=== PATIENT | male | born 1945 | race Caucasian/White ===

== ENCOUNTER 2020-10-26 15:20 | Emergency (ER) | payer MEDICARE, SELFPAY ==
[2020-10-26] VITALS (25 sets, daily range): BP systolic 122–169; BP diastolic 56–114; PULSE 76–87; RESP 14–30; TEMP 35.8; O2SAT 95–100; BMI 36.5
--- NOTE | 2020-10-26 15:27 | DI.US.S_ITS ---
PROCEDURE: US RENAL COMPLETE INDICATIONS: acute renal failure TECHNIQUE: Real-time scanning was performed of the kidneys and bladder, with image documentation. COMPARISON: None. FINDINGS: Kidneys: Kidneys are normal in size. Right kidney measures 11.5 cm long; left kidney measures 12.1 cm long. Right renal cortical thickness is 1.9 cm; left renal cortical thickness is 1.9 cm. Renal cortical echotexture is normal. No hydronephrosis or nephrolithiasis. No suspicious solid mass lesions. The right kidney has a 1.7 centimeter cyst. Bladder: Pre-void bladder volume is 142 mL. Post-void residual was not performed. The patient stated he was not able to void. Pre-void images demonstrate no intraluminal masses or stones. On pre-void images, neither right nor left ureteral jets are noted with color Doppler interrogation. (Of note, ureteral jets may not be detectable in up to 25% of cases due to insufficient differences in specific gravity between ureteral and bladder urine). Miscellaneous: No free pelvic fluid. IMPRESSION: 1. No acute abnormality of the kidneys. No hydronephrosis. 2. Simple cysts of the right kidney. 3. Prevoid volume was 142 mL and the patient unable to void. Dictated by: Ramon Bailey M.D. on 10/26/2020 at 16:28 Approved by: Ramon Bailey M.D. on 10/26/2020 at 16:31
--- NOTE | 2020-10-26 15:29 | DI.RAD.S_ITS ---
PROCEDURE: XR ACUTE ABDOMEN SERIES INDICATIONS: renal failure TECHNIQUE: One view chest and two views of the abdomen were acquired. COMPARISON: None. FINDINGS: Surgical changes and devices: None. Chest: Lungs are clear. Heart size is normal. No pleural effusions. No pneumoperitoneum. Abdomen: Bowel gas pattern is normal. No suspicious calcifications. Visualized solid organ contours appear normal. There are pelvic phleboliths. Bones: The lumbar spine has multilevel degenerative changes. IMPRESSION: No acute plain film abnormality of the abdomen or pelvis. Dictated by: Ramon Bailey M.D. on 10/26/2020 at 16:35 Approved by: Ramon Bailey M.D. on 10/26/2020 at 16:37
--- NOTE | 2020-10-26 16:13 | ED_ITS ---
HPI - Nausea/Vomiting/Diarrhea <Brandyn Cabrera DO - Last Filed: 10/28/20 17:28> General Chief complaint: Nausea/Vomiting/Diarrhea Stated complaint: sent by MD for fluids Time Seen by Provider: 10/26/20 15:27 Source: patient Mode of arrival: Ambulatory Limitations: no limitations History of Present Illness HPI Narrative: 75M nonsmoker with history of diverting ostomy for colitis, NIDDM, and HTN presents to the emergency department at the request of his primary care provider for ongoing evaluation and treatment of significantly abnormal labs. The patient and his ate at a restaurant out of town last Friday and sure double of nakia valdez both developed significant nausea abdominal cramping and diarrhea in the aftermath. Patient has become dizzy, weak and lightheaded. He has subjective fever but no chills. He denies significant pain just cramping. He admits to decreased urine output and states that that which he produces has become dark. He has become weak and fatigued a nd arrange for an appointment with his primary care provider for evaluation. She ran labs yesterday and called him stating he had critical abnormalities and needed to present to us. His creatinine had bumped to up over 3 and GFR was down around 10 or 11. MD complaint: nausea, diarrhea and abdominal pain Onset (ago): day(s) Description of Diarrhea: watery Associated Abdominal Pain: Yes Location of pain: diffuse Severity: mild Quality: cramping Pain Consistency: intermittent Relieving factors: none Exacerbating factors: none Context: possible food poisoning Associated symptoms: loss of appetite, nausea/vomiting and fatigue Related Data Allergies Allergy/AdvReac Type Severity Reaction Status Date / Time No Known Drug Allergies Allergy Verified 10/26/20 15:30 Review of Systems <Brandyn Cabrera DO - Last Filed: 10/28/20 17:28> Constitutional Constitutional: Reports chills, Reports fatigue, Reports fever(s), Denies frequent falls, Reports lethargy and Reports weakness Eyes Eyes: Denies change in vision, Denies eye discharge, Denies irritation and Arik es loss of vision ENT Ears, Nose, Mouth, and Throat: Denies change in voice, Denies dizziness, Denies neck pain, Denies sore throat and Denies throat swelling Cardiovascular Cardiovascular: Denies chest pain, Denies irregular heart rhythm, Denies lightheadedness, Denies palpitations, Denies dyspnea, Denies dyspnea on exertion and Denies orthopnea Respiratory Respiratory: Denies cough, Denies dyspnea, Denies dyspnea on exertion and Denies wheezing Gastrointestinal Gastrointestinal: Reports abdominal pain, Reports change in bowel habits, Report s diarrhea, Reports nausea and Denies vomiting Musculoskeletal Musculoskeletal: Denies neck pain and Denies numbness Integumentary/Breasts Skin/Breast: Denies pruritus, Denies erythema, Denies rash and Denies wounds Neurologic Neurologic: Denies behavioral changes, Denies confusion, Denies dizziness, Denies frequent falls, Denies loss of vision, Denies numbness and Reports weakn ess Psychiatric Psychiatric: Denies anxiety, Denies behavioral changes, Denies confusion, Denies depression, Denies homicidal ideation and Denies suicidal ideation Endocrine Endocrine: Reports fatigue, Denies flushing and Denies palpitations Hematologic/Lymphatic Hematologic/Lymphatic: Denies easy bruising Allergic/Immunologic Allergic/Immunologic: Denies urticaria, Denies throat swelling and Denies wheezing Patient History <Brandyn Cabrera DO - Last Filed: 10/28/20 17:28> Social History Smoking Status: Unknown if ever smoked Smoking Status: Unknown if ever smoked alcohol intake frequency: holidays/special occasions only Substance Use Type: does not use Exam <Brandyn Cabrera DO - Last Filed: 10/28/20 17:28> Narrative Exam Narrative: GENERAL: [75] year old patient appears stated age. Well- developed patient, in mild distress. HEAD: Atraumatic. Normocephalic. EYES: Pupils equal round and reactive. Extraocular motions intact. No scleral icterus. No injection or drainage. ENT: Dry mucous membranes Nose without bleeding, purulent drainage. Throat without erythema, tonsillar hypertrophy or exudate. Airway patent. NECK: Trachea midline. Non tender CARDIOVASCULAR: Regular rate and rhythm without murmurs, gallops, or rubs. RESPIRATORY: Clear to auscultation. Breath sounds equal bilaterally. No wheezes, rales, or rhonchi. GASTROINTESTINAL: Abdomen soft, non-tender, nondistended. Liquidy stool an ostomy bag, bowel sounds present in all 4 quadrants EXTREMITIES: No edema or joint tenderness. BACK: Nontender without deformity or crepitance. No flank tenderness. NEURO: AOx3. SKIN: Poor skin turgor No rash or erythema of visible areas Initial Vital Signs Initial Vital Signs: Vital Signs Temperature 96.4 F L 10/26/20 15:25 Pulse Rate 87 10/26/20 15:25 Respiratory Rate 16 10/26/20 15:25 Blood Pressure 130/60 10/26/20 15:25 Pulse Oximetry 97 10/26/20 15:25 <Kemar Canas, DO - Last Filed: 10/26/20 22:06> Initial Vital Signs Initial Vital Signs: Vital Signs Temperature 96.4 F L 10/26/20 15:25 Pulse Rate 87 10/26/20 15:25 Respiratory Rate 16 10/26/20 15:25 Blood Pressure 130/60 10/26/20 15:25 Pulse Oximetry 97 10/26/20 15:25 Course <Brandyn Cabrera DO - Last Filed: 10/28/20 17:28> Orders Ordered: Discontinued Medications Al Hydrox/Mg Hydrox/Simethicone (Mag Hydrox/Alum/Simeth 30 Ml Udc) 30 ml PO NOW ONE Stop: 10/26/20 16:48 Last Admin: 10/26/20 16:57 Dose: 30 ml Documented by: BTONER Sodium Chloride (Normal Saline 0.9%) 1,000 mls @ 1,000 mls/hr IV BOLUS ONE Stop: 10/26/20 16:26 Last Infusion: 10/26/20 17:59 Dose: 0 mls/hr Documented by: Admin: 10/26/20 16:46 Dose: 1,000 mls/hr Documented by: BTONER Sodium Chloride (Normal Saline 0.9%) 1,000 mls @ 1,000 mls/hr IV BOLUS ONE Stop: 10/26/20 19:05 Last Infusion: 10/26/20 20:21 Dose: 0 mls/hr Documented by: Admin: 10/26/20 18:07 Dose: 1,000 mls/hr Documented by: BTONER Sodium Chloride (Normal Saline 0.9%) 1,000 mls @ 125 mls/hr IV CONT RUDY Last Infusion: 10/26/20 23:18 Dose: 125 mls/hr Documented by: Admin: 10/26/20 22:39 Dose: 125 mls/hr Documented by: BERTIN Vital Signs Vital signs: Vital Signs - 8 hr 10/26/20 15:25 10/26/20 15:44 10/26/20 16:00 Temperature 96.4 F L Pulse Rate 87 84 82 Respiratory Rate 16 19 18 Blood Pressure 130/60 Pulse Oximetry 97 96 97 10/26/20 16:30 10/26/20 16:31 10/26/20 17:00 Temperature Pulse Rate 82 81 78 Respiratory Rate 17 19 15 Blood Pressure 122/59 L 130/56 L Pulse Oximetry 95 97 98 10/26/20 17:30 10/26/20 17:31 10/26/20 18:00 Temperature Pulse Rate 80 79 76 Respiratory Rate 15 15 16 Blood Pressure 160/70 H Pulse Oximetry 98 99 100 10/26/20 18:01 10/26/20 18:30 10/26/20 18:31 Temperature Pulse Rate 79 86 87 Respiratory Rate 20 23 30 H Blood Pressure 148/64 H 150/114 H Pulse Oximetry 98 10/26/20 19:00 10/26/20 19:30 10/26/20 19:38 Temperature Pulse Rate 76 80 79 Respiratory Rate 15 18 21 Blood Pressure 145/60 H 169/72 H Pulse Oximetry 98 97 99 10/26/20 20:00 10/26/20 20:01 10/26/20 20:30 Temperature Pulse Rate 77 78 78 Respiratory Rate 14 17 15 Blood Pressure 165/69 H Pulse Oximetry 98 98 100 10/26/20 20:31 10/26/20 21:00 10/26/20 21:26 Temperature Pulse Rate 79 86 81 Respiratory Rate 14 18 17 Blood Pressure 151/66 H 158/100 H Pulse Oximetry 99 99 98 10/26/20 21:30 10/26/20 21:31 Temperature Pulse Rate 83 80 Respiratory Rate 19 17 Blood Pressure 152/67 H Pulse Oximetry 98 98 <Kemar Canas DO - Last Filed: 10/26/20 22:06> Orders Ordered: Discontinued Medications Al Hydrox/Mg Hydrox/Simethicone (Mag Hydrox/Alum/Simeth 30 Ml Udc) 30 ml PO NOW ONE Stop: 10/26/20 16:48 Last Admin: 10/26/20 16:57 Dose: 30 ml Documented by: BTONETayler Sodium Chloride (Normal Saline 0.9%) 1,000 mls @ 1,000 mls/hr IV BOLUS ONE Stop: 10/26/20 16:26 Last Infusion: 10/26/20 17:59 Dose: 0 mls/hr Documented by: Admin: 10/26/20 16:46 Dose: 1,000 mls/hr Documented by: ZULMAONER Sodium Chloride (Normal Saline 0.9%) 1,000 mls @ 1,000 mls/hr IV BOLUS ONE Stop: 10/26/20 19:05 Last Infusion: 10/26/20 20:21 Dose: 0 mls/hr Documented by: Admin: 10/26/20 18:07 Dose: 1,000 mls/hr Documented by: ZULMAONER Sodium Chloride (Normal Saline 0.9%) 1,000 mls @ 125 mls/hr IV CONT RUDY Last Infusion: 10/26/20 23:18 Dose: 125 mls/hr Documented by: Admin: 10/26/20 22:39 Dose: 125 mls/hr Documented by: BERTIN Vital Signs Vital signs: Vital Signs - 8 hr 10/26/20 15:25 10/26/20 15:44 10/26/20 16:00 Temperature 96.4 F L Pulse Rate 87 84 82 Respiratory Rate 16 19 18 Blood Pressure 130/60 Pulse Oximetry 97 96 97 10/26/20 16:30 10/26/20 16:31 10/26/20 17:00 Temperature Pulse Rate 82 81 78 Respiratory Rate 17 19 15 Blood Pressure 122/59 L 130/56 L Pulse Oximetry 95 97 98 10/26/20 17:30 10/26/20 17:31 10/26/20 18:00 Temperature Pulse Rate 80 79 76 Respiratory Rate 15 15 16 Blood Pressure 160/70 H Pulse Oximetry 98 99 100 10/26/20 18:01 10/26/20 18:30 10/26/20 18:31 Temperature Pulse Rate 79 86 87 Respiratory Rate 20 23 30 H Blood Pressure 148/64 H 150/114 H Pulse Oximetry 98 10/26/20 19:00 10/26/20 19:30 10/26/20 19:38 Temperature Pulse Rate 76 80 79 Respiratory Rate 15 18 21 Blood Pressure 145/60 H 169/72 H Pulse Oximetry 98 97 99 10/26/20 20:00 10/26/20 20:01 10/26/20 20:30 Temperature Pulse Rate 77 78 78 Respiratory Rate 14 17 15 Blood Pressure 165/69 H Pulse Oximetry 98 98 100 10/26/20 20:31 10/26/20 21:00 10/26/20 21:26 Temperature Pulse Rate 79 86 81 Respiratory Rate 14 18 17 Blood Pressure 151/66 H 158/100 H Pulse Oximetry 99 99 98 10/26/20 21:30 10/26/20 21:31 Temperature Pulse Rate 83 80 Respiratory Rate 19 17 Blood Pressure 152/67 H Pulse Oximetry 98 98 MDM - Nausea/Vomiting/Diarrhea <Brandyn Cabrera DO - Last Filed: 10/28/20 17:28> Lab Data Result diagrams: 10/26/20 16:30 10/26/20 19:36 Labs: Lab Results 10/26/20 10/26/20 10/26/20 Range/Units 16:30 16:30 16:30 WBC 12.1 H (4.5-11.0) X10^3/uL RBC 5.75 (4.5-5.9) X10^6/uL Hgb 18.8 H (13.5-17.5) g/dL Hct 55.8 H (41-53) % MCV 97.0 (80-100) fL MCH 32.7 (26-34) PG MCHC 33.7 (30-36) % RDW 13.4 (11.6-14.8) % Plt Count 264 (150-400) X10^3/uL Neut % (Auto) 73.7 (50-75) % Lymph % (Auto) 19.2 L (25-40) % [place] % (Auto) 6.1 (3-14) % Eos % (Auto) 0.4 L (2-4) % Baso % (Auto) 0.6 (0-2) % Neut # (Auto) 8900 H (0222-1595) /uL Lymph # (Auto) 2300 (9881-2527) /uL [place] # (Auto) 700 (0-900) /uL Eos # (Auto) 100 (0-450) /uL Baso # (Auto) 100 (0-100) /uL Sodium 128 L (137-145) mmol/L Potassium 5.3 H (3.4-5.1) mmol/L Chloride 92 L (98-107) mmol/L Carbon Dioxide 15 L (22-32) mmol/L BUN 116 H* (9-20) mg/dL Creatinine 5.86 H (0.66-1.25) mg/dL Estimated GFR 9.5 L (>60) mL/min BUN/Creatinine Ratio 19.8 (6-22) Glucose 205 H (80-110) mg/dL Lactate (0.7-2.1) mmol/L Calcium 10.9 H (8.4-10.2) mg/dL Magnesium 2.5 H (1.6-2.3) mg/dL Total Bilirubin 0.8 (0.2-1.3) mg/dL AST 27 (17-59) IU/L ALT 31 (<50) IU/L Alkaline Phosphatase 67 (38-126) U/L Total Creatine Kinase 152 (55-170) U/L CK-MB (CK-2) 4.92 H (<2.37) ng/mL CK-MB (CK-2) Rel Index 3.2 (1.5-5.0) % Troponin I < 0.012 (0.01-0.034) ng/mL NT-Pro-B Natriuret Pep 276 H (<125) pg/mL Total Protein 7.6 (6.3-8.2) g/dL Albumin 4.9 (3.5-5.0) g/dL Globulin 2.7 (1.7-4.1) g/dL Albumin/Globulin Ratio 1.8 (1.0-2.8) Ur Random Sodium Urine Creatinine Stl C. cayetanensis PCR (Not Detect) Stool Rotavirus (PCR) (Not Detect) Stool Adenovirus (PCR) (Not Detect) Stool Astrovirus (PCR) (Not Detect) Stool Cryptosporidium PCR (Not Detect) Stl E.coli Shiga Tox PCR (Not Detect) St Sh/Enteroin Ecoli PCR (Not Detect) Stool E coli O157 PCR Stl Enterotoxigenic E PCR (Not Detect) Stool EPEC (PCR) (Not Detect) Stl E. histolytica PCR (Not Detect) Stool Giardia Lamblia PCR (Not Detect) Stool Sapovirus (PCR) (Not Detect) Stl P. shigelloides PCR (Not Detect) St Y.enterocolitica PCR (Not Detect) Stool Vibrio (PCR) (Not Detect) Stl Vibrio cholerae PCR (Not Detect) Stl Enteroaggr Ecoli PCR (Not Detect) Stl Norovirus GI/GII PCR (Not Detect) Campylobacter (PCR) (Not Detect) C. difficile Tox (PCR) (Not Detect) SARS-CoV-2 (PCR) (Negative) Salmonella (PCR) (Not Detect) 10/26/20 10/26/20 10/26/20 Range/Units 16:30 16:30 16:30 WBC (4.5-11.0) X10^3/uL RBC (4.5-5.9) X10^6/uL Hgb (13.5-17.5) g/dL Hct (41-53) % MCV (80-100) fL MCH (26-34) PG MCHC (30-36) % RDW (11.6-14.8) % Plt Count (150-400) X10^3/uL Neut % (Auto) (50-75) % Lymph % (Auto) (25-40) % [place] % (Auto) (3-14) % Eos % (Auto) (2-4) % Baso % (Auto) (0-2) % Neut # (Auto) (0597-6490) /uL Lymph # (Auto) (0743-2091) /uL [place] # (Auto) (0-900) /uL Eos # (Auto) (0-450) /uL Baso # (Auto) (0-100) /uL Sodium (137-145) mmol/L Potassium (3.4-5.1) mmol/L Chloride (98-107) mmol/L Carbon Dioxide (22-32) mmol/L BUN (9-20) mg/dL Creatinine (0.66-1.25) mg/dL Estimated GFR (>60) mL/min BUN/Creatinine Ratio (6-22) Glucose (80-110) mg/dL Lactate 2.1 (0.7-2.1) mmol/L Calcium (8.4-10.2) mg/dL Magnesium (1.6-2.3) mg/dL Total Bilirubin (0.2-1.3) mg/dL AST (17-59) IU/L ALT (<50) IU/L Alkaline Phosphatase (38-126) U/L Total Creatine Kinase (55-170) U/L CK-MB (CK-2) (<2.37) ng/mL CK-MB (CK-2) Rel Index (1.5-5.0) % Troponin I (0.01-0.034) ng/mL NT-Pro-B Natriuret Pep (<125) pg/mL Total Protein (6.3-8.2) g/dL Albumin (3.5-5.0) g/dL Globulin (1.7-4.1) g/dL Albumin/Globulin Ratio (1.0-2.8) Ur Random Sodium Cancelled Urine Creatinine Cancelled Stl C. cayetanensis PCR (Not Detect) Stool Rotavirus (PCR) (Not Detect) Stool Adenovirus (PCR) (Not Detect) Stool Astrovirus (PCR) (Not Detect) Stool Cryptosporidium PCR (Not Detect) Stl E.coli Shiga Tox PCR (Not Detect) St Sh/Enteroin Ecoli PCR (Not Detect) Stool E coli O157 PCR Stl Enterotoxigenic E PCR (Not Detect) Stool EPEC (PCR) (Not Detect) Stl E. histolytica PCR (Not Detect) Stool Giardia Lamblia PCR (Not Detect) Stool Sapovirus (PCR) (Not Detect) Stl P. shigelloides PCR (Not Detect) St Y.enterocolitica PCR (Not Detect) Stool Vibrio (PCR) (Not Detect) Stl Vibrio cholerae PCR (Not Detect) Stl Enteroaggr Ecoli PCR (Not Detect) Stl Norovirus GI/GII PCR (Not Detect) Campylobacter (PCR) (Not Detect) C. difficile Tox (PCR) (Not Detect) SARS-CoV-2 (PCR) Negative (Negative) Salmonella (PCR) (Not Detect) 10/26/20 10/26/20 10/26/20 Range/Units 18:13 19:36 19:36 WBC (4.5-11.0) X10^3/uL RBC (4.5-5.9) X10^6/uL Hgb (13.5-17.5) g/dL Hct (41-53) % MCV (80-100) fL MCH (26-34) PG MCHC (30-36) % RDW (11.6-14.8) % Plt Count (150-400) X10^3/uL Neut % (Auto) (50-75) % Lymph % (Auto) (25-40) % [place] % (Auto) (3-14) % Eos % (Auto) (2-4) % Baso % (Auto) (0-2) % Neut # (Auto) (2986-7015) /uL Lymph # (Auto) (3697-9671) /uL [place] # (Auto) (0-900) /uL Eos # (Auto) (0-450) /uL Baso # (Auto) (0-100) /uL Sodium (137-145) mmol/L Potassium (3.4-5.1) mmol/L Chloride (98-107) mmol/L Carbon Dioxide (22-32) mmol/L BUN (9-20) mg/dL Creatinine 5.86 H (0.66-1.25) mg/dL Estimated GFR 9.5 L (>60) mL/min BUN/Creatinine Ratio (6-22) Glucose (80-110) mg/dL Lactate 1.2 (0.7-2.1) mmol/L Calcium (8.4-10.2) mg/dL Magnesium (1.6-2.3) mg/dL Total Bilirubin (0.2-1.3) mg/dL AST (17-59) IU/L ALT (<50) IU/L Alkaline Phosphatase (38-126) U/L Total Creatine Kinase (55-170) U/L CK-MB (CK-2) (<2.37) ng/mL CK-MB (CK-2) Rel Index (1.5-5.0) % Troponin I (0.01-0.034) ng/mL NT-Pro-B Natriuret Pep (<125) pg/mL Total Protein (6.3-8.2) g/dL Albumin (3.5-5.0) g/dL Globulin (1.7-4.1) g/dL Albumin/Globulin Ratio (1.0-2.8) Ur Random Sodium Urine Creatinine Stl C. cayetanensis PCR Not detected (Not Detect) Stool Rotavirus (PCR) Not detected (Not Detect) Stool Adenovirus (PCR) Not detected (Not Detect) Stool Astrovirus (PCR) Not detected (Not Detect) Stool Cryptosporidium PCR Not detected (Not Detect) Stl E.coli Shiga Tox PCR Not detected (Not Detect) St Sh/Enteroin Ecoli PCR Not detected (Not Detect) Stool E coli O157 PCR Not Reportable Stl Enterotoxigenic E PCR Not detected (Not Detect) Stool EPEC (PCR) Not detected (Not Detect) Stl E. histolytica PCR Not detected (Not Detect) Stool Giardia Lamblia PCR Not detected (Not Detect) Stool Sapovirus (PCR) Not detected (Not Detect) Stl P. shigelloides PCR Not detected (Not Detect) St Y.enterocolitica PCR Not detected (Not Detect) Stool Vibrio (PCR) Not detected (Not Detect) Stl Vibrio cholerae PCR Not detected (Not Detect) Stl Enteroaggr Ecoli PCR Detected H (Not Detect) Stl Norovirus GI/GII PCR Not detected (Not Detect) Campylobacter (PCR) Not detected (Not Detect) C. difficile Tox (PCR) Not detected (Not Detect) SARS-CoV-2 (PCR) (Negative) Salmonella (PCR) Not detected (Not Detect) Imaging Data Abdominal x-ray: Radiologist's Impression: [address] [id number] ReportSigned Patient: Tong Holliday LMR#: [id number]: [id number]:[id number]/Sex: 75 / MDate of Service: 10/26/20Loc: EDAccession Number: [id number] Procedure: XR acute abdomen series Ordering Provider: Brandyn Cabrera D.O. PROCEDURE: XR ACUTE ABDOMEN SERIES INDICATIONS: renal failure TECHNIQUE: One view chest and two views of the abdomen were acquired. COMPARISON: None. FINDINGS: Surgical changes and devices: None. Chest: Lungs are clear. Heart size is normal. No pleural effusions. No pneumoperitoneum. Abdomen: Bowel gas pattern is normal. No suspicious calcifications. Visualized solid organ contours appear normal. There are pelvic phleboliths. Bones: The lumbar spine has multilevel degenerative changes. IMPRESSION: No acute plain film abnormality of the abdomen or pelvis. Dictated by: Ramon Bailey M.D. on 10/26/2020 at 16:35 Approved by: Ramon Bailey M.D. on 10/26/2020 at 16:37 Renal US: Radiologist's Impression: Chart Viewer Diagnostics DATE TYPE STATUS REF RANGE/AUTHOR Hx Today 15:29 Ramon Bailey Today 15:27 Ramon Bailey Daniel L 75, M0 1945 [facility] ER, Main ED R08 172.72cm 108.862kg BMI: 36.5kg/m? Nausea/Vomiting/Diarrhea Search Chart No Data to Display No Data to Display No Data to Display Today 15:25 Tong Holliday 75 M [address] [id number] ReportSigned Patient: Tong Holliday LMR#: [id number]: [id number]:[id number]/Sex: 75 / MDate of Service: 10/26/20Loc: EDAccession Number: [id number] Procedure: US renal complete Ordering Provider: Brandyn Cabrera D.O. PROCEDURE: US RENAL COMPLETE INDICATIONS: acute renal failure TECHNIQUE: Real-time scanning was performed of the kidneys and bladder, with image documentation. COMPARISON: None. FINDINGS: Kidneys: Kidneys are normal in size. Right kidney measures 11.5 cm long; left kidney measures 12.1 cm long. Right renal cortical thickness is 1.9 cm; left renal cortical thickness is 1.9 cm. Renal cortical echotexture is normal. No hydronephrosis or nephrolithiasis. No suspicious solid mass lesions. The right kidney has a 1.7 centimeter cyst. Bladder: Pre-void bladder volume is 142 mL. Post-void residual was not performed. The patient stated he was not able to void. Pre-void images demonstrate no intraluminal masses or stones. On pre-void images, neither right nor left ureteral jets are noted with color Doppler interrogation. (Of note, ureteral jets may not be detectable in up to 25% of cases due to insufficient differences in specific gravity between ureteral and bladder urine). Miscellaneous: No free pelvic fluid. IMPRESSION: 1. No acute abnormality of the kidneys. No hydronephrosis. 2. Simple cysts of the right kidney. 3. Prevoid volume was 142 mL and the patient unable to void. Dictated by: Ramon Bailey M.D. on 10/26/2020 at 16:28 Approved by: Ramon Bailey M.D. on 10/26/2020 at 16:31 <Kemar Canas, DO - Last Filed: 10/26/20 22:06> Lab Data Attestation: I reviewed the patient's lab results. Labs: Lab Results 10/26/20 10/26/20 10/26/20 Range/Units 16:30 16:30 16:30 WBC 12.1 H (4.5-11.0) X10^3/uL RBC 5.75 (4.5-5.9) X10^6/uL Hgb 18.8 H (13.5-17.5) g/dL Hct 55.8 H (41-53) % MCV 97.0 (80-100) fL MCH 32.7 (26-34) PG MCHC 33.7 (30-36) % RDW 13.4 (11.6-14.8) % Plt Count 264 (150-400) X10^3/uL Neut % (Auto) 73.7 (50-75) % Lymph % (Auto) 19.2 L (25-40) % [place] % (Auto) 6.1 (3-14) % Eos % (Auto) 0.4 L (2-4) % Baso % (Auto) 0.6 (0-2) % Neut # (Auto) 8900 H (6271-6978) /uL Lymph # (Auto) 2300 (3923-1579) /uL [place] # (Auto) 700 (0-900) /uL Eos # (Auto) 100 (0-450) /uL Baso # (Auto) 100 (0-100) /uL Sodium 128 L (137-145) mmol/L Potassium 5.3 H (3.4-5.1) mmol/L Chloride 92 L (98-107) mmol/L Carbon Dioxide 15 L (22-32) mmol/L BUN 116 H* (9-20) mg/dL Creatinine 5.86 H (0.66-1.25) mg/dL Estimated GFR 9.5 L (>60) mL/min BUN/Creatinine Ratio 19.8 (6-22) Glucose 205 H (80-110) mg/dL Lactate (0.7-2.1) mmol/L Calcium 10.9 H (8.4-10.2) mg/dL Magnesium 2.5 H (1.6-2.3) mg/dL Total Bilirubin 0.8 (0.2-1.3) mg/dL AST 27 (17-59) IU/L ALT 31 (<50) IU/L Alkaline Phosphatase 67 (38-126) U/L Total Creatine Kinase 152 (55-170) U/L CK-MB (CK-2) 4.92 H (<2.37) ng/mL CK-MB (CK-2) Rel Index 3.2 (1.5-5.0) % Troponin I < 0.012 (0.01-0.034) ng/mL NT-Pro-B Natriuret Pep 276 H (<125) pg/mL Total Protein 7.6 (6.3-8.2) g/dL Albumin 4.9 (3.5-5.0) g/dL Globulin 2.7 (1.7-4.1) g/dL Albumin/Globulin Ratio 1.8 (1.0-2.8) Ur Random Sodium Urine Creatinine Stl C. cayetanensis PCR (Not Detect) Stool Rotavirus (PCR) (Not Detect) Stool Adenovirus (PCR) (Not Detect) Stool Astrovirus (PCR) (Not Detect) Stool Cryptosporidium PCR (Not Detect) Stl E.coli Shiga Tox PCR (Not Detect) St Sh/Enteroin Ecoli PCR (Not Detect) Stool E coli O157 PCR Stl Enterotoxigenic E PCR (Not Detect) Stool EPEC (PCR) (Not Detect) Stl E. histolytica PCR (Not Detect) Stool Giardia Lamblia PCR (Not Detect) Stool Sapovirus (PCR) (Not Detect) Stl P. shigelloides PCR (Not Detect) St Y.enterocolitica PCR (Not Detect) Stool Vibrio (PCR) (Not Detect) Stl Vibrio cholerae PCR (Not Detect) Stl Enteroaggr Ecoli PCR (Not Detect) Stl Norovirus GI/GII PCR (Not Detect) Campylobacter (PCR) (Not Detect) C. difficile Tox (PCR) (Not Detect) SARS-CoV-2 (PCR) (Negative) Salmonella (PCR) (Not Detect) 10/26/20 10/26/20 10/26/20 Range/Units 16:30 16:30 16:30 WBC (4.5-11.0) X10^3/uL RBC (4.5-5.9) X10^6/uL Hgb (13.5-17.5) g/dL Hct (41-53) % MCV (80-100) fL MCH (26-34) PG MCHC (30-36) % RDW (11.6-14.8) % Plt Count (150-400) X10^3/uL Neut % (Auto) (50-75) % Lymph % (Auto) (25-40) % [place] % (Auto) (3-14) % Eos % (Auto) (2-4) % Baso % (Auto) (0-2) % Neut # (Auto) (4134-5898) /uL Lymph # (Auto) (1564-7552) /uL [place] # (Auto) (0-900) /uL Eos # (Auto) (0-450) /uL Baso # (Auto) (0-100) /uL Sodium (137-145) mmol/L Potassium (3.4-5.1) mmol/L Chloride (98-107) mmol/L Carbon Dioxide (22-32) mmol/L BUN (9-20) mg/dL Creatinine (0.66-1.25) mg/dL Estimated GFR (>60) mL/min BUN/Creatinine Ratio (6-22) Glucose (80-110) mg/dL Lactate 2.1 (0.7-2.1) mmol/L Calcium (8.4-10.2) mg/dL Magnesium (1.6-2.3) mg/dL Total Bilirubin (0.2-1.3) mg/dL AST (17-59) IU/L ALT (<50) IU/L Alkaline Phosphatase (38-126) U/L Total Creatine Kinase (55-170) U/L CK-MB (CK-2) (<2.37) ng/mL CK-MB (CK-2) Rel Index (1.5-5.0) % Troponin I (0.01-0.034) ng/mL NT-Pro-B Natriuret Pep (<125) pg/mL Total Protein (6.3-8.2) g/dL Albumin (3.5-5.0) g/dL Globulin (1.7-4.1) g/dL Albumin/Globulin Ratio (1.0-2.8) Ur Random Sodium Cancelled Urine Creatinine Cancelled Stl C. cayetanensis PCR (Not Detect) Stool Rotavirus (PCR) (Not Detect) Stool Adenovirus (PCR) (Not Detect) Stool Astrovirus (PCR) (Not Detect) Stool Cryptosporidium PCR (Not Detect) Stl E.coli Shiga Tox PCR (Not Detect) St Sh/Enteroin Ecoli PCR (Not Detect) Stool E coli O157 PCR Stl Enterotoxigenic E PCR (Not Detect) Stool EPEC (PCR) (Not Detect) Stl E. histolytica PCR (Not Detect) Stool Giardia Lamblia PCR (Not Detect) Stool Sapovirus (PCR) (Not Detect) Stl P. shigelloides PCR (Not Detect) St Y.enterocolitica PCR (Not Detect) Stool Vibrio (PCR) (Not Detect) Stl Vibrio cholerae PCR (Not Detect) Stl Enteroaggr Ecoli PCR (Not Detect) Stl Norovirus GI/GII PCR (Not Detect) Campylobacter (PCR) (Not Detect) C. difficile Tox (PCR) (Not Detect) SARS-CoV-2 (PCR) Negative (Negative) Salmonella (PCR) (Not Detect) 10/26/20 10/26/20 10/26/20 Range/Units 18:13 19:36 19:36 WBC (4.5-11.0) X10^3/uL RBC (4.5-5.9) X10^6/uL Hgb (13.5-17.5) g/dL Hct (41-53) % MCV (80-100) fL MCH (26-34) PG MCHC (30-36) % RDW (11.6-14.8) % Plt Count (150-400) X10^3/uL Neut % (Auto) (50-75) % Lymph % (Auto) (25-40) % [place] % (Auto) (3-14) % Eos % (Auto) (2-4) % Baso % (Auto) (0-2) % Neut # (Auto) (2304-2848) /uL Lymph # (Auto) (5347-5096) /uL [place] # (Auto) (0-900) /uL Eos # (Auto) (0-450) /uL Baso # (Auto) (0-100) /uL Sodium (137-145) mmol/L Potassium (3.4-5.1) mmol/L Chloride (98-107) mmol/L Carbon Dioxide (22-32) mmol/L BUN (9-20) mg/dL Creatinine 5.86 H (0.66-1.25) mg/dL Estimated GFR 9.5 L (>60) mL/min BUN/Creatinine Ratio (6-22) Glucose (80-110) mg/dL Lactate 1.2 (0.7-2.1) mmol/L Calcium (8.4-10.2) mg/dL Magnesium (1.6-2.3) mg/dL Total Bilirubin (0.2-1.3) mg/dL AST (17-59) IU/L ALT (<50) IU/L Alkaline Phosphatase (38-126) U/L Total Creatine Kinase (55-170) U/L CK-MB (CK-2) (<2.37) ng/mL CK-MB (CK-2) Rel Index (1.5-5.0) % Troponin I (0.01-0.034) ng/mL NT-Pro-B Natriuret Pep (<125) pg/mL Total Protein (6.3-8.2) g/dL Albumin (3.5-5.0) g/dL Globulin (1.7-4.1) g/dL Albumin/Globulin Ratio (1.0-2.8) Ur Random Sodium Urine Creatinine Stl C. cayetanensis PCR Not detected (Not Detect) Stool Rotavirus (PCR) Not detected (Not Detect) Stool Adenovirus (PCR) Not detected (Not Detect) Stool Astrovirus (PCR) Not detected (Not Detect) Stool Cryptosporidium PCR Not detected (Not Detect) Stl E.coli Shiga Tox PCR Not detected (Not Detect) St Sh/Enteroin Ecoli PCR Not detected (Not Detect) Stool E coli O157 PCR Not Reportable Stl Enterotoxigenic E PCR Not detected (Not Detect) Stool EPEC (PCR) Not detected (Not Detect) Stl E. histolytica PCR Not detected (Not Detect) Stool Giardia Lamblia PCR Not detected (Not Detect) Stool Sapovirus (PCR) Not detected (Not Detect) Stl P. shigelloides PCR Not detected (Not Detect) St Y.enterocolitica PCR Not detected (Not Detect) Stool Vibrio (PCR) Not detected (Not Detect) Stl Vibrio cholerae PCR Not detected (Not Detect) Stl Enteroaggr Ecoli PCR Detected H (Not Detect) Stl Norovirus GI/GII PCR Not detected (Not Detect) Campylobacter (PCR) Not detected (Not Detect) C. difficile Tox (PCR) Not detected (Not Detect) SARS-CoV-2 (PCR) (Negative) Salmonella (PCR) Not detected (Not Detect) Imaging Data Renal ultrasound: Radiologist's Impression: [address] [id number] ReportSigned Patient: Tong Holliday LMR#: [id number]: [id number]/Sex: 75 / MDate of Service: 10/26/20Loc: EDAccession Number: [id number] Procedure: US renal complete Ordering Provider: Brandyn Cabrera D.O. PROCEDURE: US RENAL COMPLETE INDICATIONS: acute renal failure TECHNIQUE: Real-time scanning was performed of the kidneys and bladder, with image documentation. COMPARISON: None. FINDINGS: Kidneys: Kidneys are normal in size. Right kidney measures 11.5 cm long; left kidney measures 12.1 cm long. Right renal cortical thickness is 1.9 cm; left renal cortical thickness is 1.9 cm. Renal cortical echotexture is normal. No hydronephrosis or nephrolithiasis. No suspicious solid mass lesions. The right kidney has a 1.7 centimeter cyst. Bladder: Pre-void bladder volume is 142 mL. Post-void residual was not performed. The patient stated he was not able to void. Pre-void images demonstrate no intraluminal masses or stones. On pre-void images, neither right nor left ureteral jets are noted with color Doppler interrogation. (Of note, ureteral jets may not be detectable in up to 25% of cases due to insufficient differences in specific gravity between ureteral and bladder urine). Miscellaneous: No free pelvic fluid. IMPRESSION: 1. No acute abnormality of the kidneys. No hydronephrosis. 2. Simple cysts of the right kidney. 3. Prevoid volume was 142 mL and the patient unable to void. Dictated by: Ramon Bailey M.D. on 10/26/2020 at 16:28 Approved by: Ramon Bailey M.D. on 10/26/2020 at 16: MDM Narrative Medical decision making narrative: Dr Canas: Received turned over. Reviewed patient's history and physical. Reviewed patient's labs and also radiologic studies. Patient initially with acute kidney injury which was thought to have been pre renal based on his presentation. His stool studies stated come back positive for E coli. Initial discussion from the initial ED provider with the hospitalist resulted in the plan to keep him here in the emergency department and give him fluids and repeat his kidney studies. Further was some concern that he may need to be at a facility with Nephrology. After approximately 1200 cc of fluid the patient still has been unable to urinate. Repeat kidney studies do not show any improvement but also do not show any worsening. Patient tried to provide a urine sample. Bladder ultrasound at that time showed approximately 400 cc of urine. He states that he does not urinate much during the day at baseline. I did discuss the case with Nephrology at [facility] who recommended that the patient continue to be hydrated. Hospitalist here at the hospital on comfortable keeping the patient given his kidney studies and are lack of nephrology coverage so they recommended patient be transferred. I discussed the case with Dr. Davidson hospitalist at [facility] who accepts the patient in transfer. I did discuss the transfer with the patient he expressed understanding and agreement. Patient is stable for transfer. Discharge Plan Departure Patient Disposition: [facility] Clinical Impression: Acute renal failure, Dehydration
[2020-10-26] MEDS: SODIUM CHLORIDE 0.9% 1,000 ML 1000 ML IV ×2 (16:46→18:07)
[2020-10-26 16:55] LABS: Alanine Aminotransferase 31 IU/L (<50); Albumin 4.9 g/dL (3.5-5.0); Albumin Globulin Ratio 1.8 (1.0-2.8); Alkaline Phosphatase 67 U/L (38-126); Aspartate Aminotransferase 27 IU/L (17-59); Bilirubin Total 0.8 mg/dL (0.2-1.3); Calcium 10.9 mg/dL (8.4-10.2); Carbon Dioxide 15 mmol/L (22-32); Chloride 92 mmol/L (98-107); Globulin 2.7 g/dL (1.7-4.1); Glucose 205 mg/dL (80-110); Lactate (Lactic Acid) 2.1 mmol/L (0.7-2.1); Potassium 5.3 mmol/L (3.4-5.1); Sodium 128 mmol/L (137-145); Total Protein 7.6 g/dL (6.3-8.2)
[2020-10-26 16:56] LABS: Add Manual Diff / Slide Review NO; Basophils Absolute Auto 100 /uL (0-100); Basophils Percent Auto 0.6 % (0-2); Eosinophils Absolute Auto 100 /uL (0-450); Eosinophils Percent Auto 0.4 % (2-4); Hematocrit 55.8 % (41-53); Hemoglobin 18.8 g/dL (13.5-17.5); Lymphocytes Absolute Auto 2300 /uL (1100-4500); Lymphocytes Percent Auto 19.2 % (25-40); Mean Corpuscular HGB Conc 33.7 % (30-36); Mean Corpuscular Hemoglobin 32.7 PG (26-34); Monocytes Absolute Auto 700 /uL (0-900); Monocytes Percent Auto 6.1 % (3-14); Neutrophils Absolute Auto 8900 /uL (1500-7000); Neutrophils Percent Auto 73.7 % (50-75); Platelet Count 264 X10^3/uL (150-400); Red Blood Cell Count 5.75 X10^6/uL (4.5-5.9); Red Cell Distribution Width 13.4 % (11.6-14.8); White Blood Cell Count 12.1 X10^3/uL (4.5-11.0)
[2020-10-26 16:57] LABS: Creatine Kinase 152 U/L (55-170); Magnesium 2.5 mg/dL (1.6-2.3)
[2020-10-26] MEDS: MAG HYDROX/ALUM/SIMETH 30 ML UDC PO (16:57)
[2020-10-26 17:01] LABS: Estimated Glomerular Filt Rate 9.5 mL/min (>60)
[2020-10-26 17:04] LABS: BUN Creatinine Ratio 19.8 (6-22)
[2020-10-26 17:06] LABS: NT-proBNP (BNP-Adult 18+) 276 pg/mL (<125); Troponin I < 0.012 ng/mL (0.01-0.034)
[2020-10-26 17:08] LABS: HEMOLYSIS 51 (0-50)
[2020-10-26 17:11] LABS: Blood Urea Nitrogen 116 mg/dL (9-20)
[2020-10-26 17:12] LABS: CKMB % Relative Index 3.2 % (1.5-5.0); COVID19 - ADMIT (NP swab/PCR) Negative (Negative); Creatine Kinase MB 4.92 ng/mL (<2.37)
--- NOTE | 2020-10-26 17:18 | PC.NURSE ---
pt spouse states she and he ate the same thing and both were ill from what they think is food poisoning. she recovered and he has felt worse. pt went to his pcp yesterday who called him and said to be seen in an ED.
--- NOTE | 2020-10-26 17:41 | PC.NURSE ---
pt states he hasn't had pain but lack of appetite.
[2020-10-26 18:33] LABS: Reflexed Lactate in 2 Hours Y
[2020-10-26 19:59] LABS: Estimated Glomerular Filt Rate 9.5 mL/min (>60); Lactate 2HR (Lactic Acid Rflx) 1.2 mmol/L (0.7-2.1)
[2020-10-26 20:06] LABS: Adenovirus F 40/41 Not Detected (Not Detect); Astrovirus Not Detected (Not Detect); Campylobacter Not Detected (Not Detect); Clostridium difficile toxin AB Not Detected (Not Detect); Cryptosporidium Not Detected (Not Detect); Cyclospora cayetanensis Not Detected (Not Detect); Entamoeba histolytica Not Detected (Not Detect); Enteroaggregative E.coli Detected (Not Detect); Enteropathogenic E.coli Not Detected (Not Detect); Enterotoxigenic E.coli It/st Not Detected (Not Detect); Giardia lamblia Not Detected (Not Detect); Norovirus GI/GII Not Detected (Not Detect); Plesiomonsa shigelloides Not Detected (Not Detect); Rotavirus A Not Detected (Not Detect); Salmonella Not Detected (Not Detect); Sapovirus Not Detected (Not Detect); Shiga-like toxin-prod E.coli Not Detected (Not Detect); Shigella/Enteroinvasive E.coli Not Detected (Not Detect); Vibrio Not Detected (Not Detect); Vibrio cholerae Not Detected (Not Detect); Yersinia enterocolitica Not Detected (Not Detect)
[2020-10-26] MEDS: SODIUM CHLORIDE 0.9% 1,000 ML 125 ML IV (22:39)
--- NOTE | 2020-10-26 23:19 | PC.NURSE ---
He just left via ambulance to [facility],his iv normal saline was infusing at 125ml per hour,125 ml from a liter bag had infused.
== END 2020-10-26 23:10 | disposition short-term general hospital (02) ==
PROVIDERS: Emergency Medicine; Emergency Provider Emergency Medicine
DX: N17.9 Acute kidney failure, unspecified (principal); E86.0 Dehydration; R19.7 Diarrhea, unspecified; R10.9 Unspecified abdominal pain; Z20.822 Contact with and (suspected) exposure to COVID-19
CPT/HCPCS: 36415; 74022; 76770; 80053; 82550; 82553; 82565; 83605; 83735; 83880; 84484; 85025; 87507; 87635; 93005; 96360; 96361; 99285; C9803